=== PATIENT | female | born 1945 | race Two or more races ===

== ENCOUNTER 2025-07-21 11:52 | Inpatient (IN) | payer OTHER ==
[~2025-07-21] VITALS: Ht 160 cm; Wt 59.0 kg
[2025-07-21] MEDS ORDERED: XANAX0.25 MG (13:38)
[2025-07-21] MEDS ORDERED: LEXAPRO5 MG (13:38)
--- NOTE | 2025-07-21 13:38 | NUR ---
PACIENTE FEMENINA ALERTA Y ORIENTADA X3 REFIERE TENER DIARREA HACE 3 VALDEZ. REFIERE TENER COLOSTOMIA. SE MIDEN SIGNOS VITALES Y SE UBICA
[2025-07-21] MEDS ORDERED: ONDANSETRON HCL 2 MG/ML VIAL IV ONE (16:00)
[2025-07-21] MEDS ORDERED: FAMOTIDINE/PF 20 MG/2 ML VIAL IV ONE (16:00)
[2025-07-21] MEDS ORDERED: 0.9 % SODIUM CHLORIDE 1,000 ML IV ONE (16:00)
[2025-07-21] MEDS ORDERED: LOPERAMIDE HCL 2 MG CAPSULE PO ONE ×2 (16:00→16:06)
[2025-07-21] MEDS ORDERED: KETOROLAC TROMETHAMINE 30 MG VIAL IU ONE (16:00)
[2025-07-21] MEDS ORDERED: KETOROLAC TROMETHAMINE 30 MG VIAL ONE (16:06)
[2025-07-21] MEDS ORDERED: FAMOTIDINE/PF 20 MG/2 ML VIAL ONE (16:06)
[2025-07-21] MEDS ORDERED: ONDANSETRON HCL 2 MG/ML VIAL ONE (16:06)
--- NOTE | 2025-07-21 16:50 | NUR ---
PACIENTE EVALUADA POR MD QUIEN ORDENA TRATAMIENTO MEDICO, SE LE ORIENTA A PACIENTE SOBRE EL MISMO Y REFIERE ENTENDER, SE LE COLECTAN MUESTAS, SE CANLAIZA Y SE LE ADMINISTRAN MEDICAMENTOS MORIAH ORDEN. PACIENTE TOLERA Y SE MANTIENE BAJO OBSERVACION POR CAMBIOS.
[2025-07-21 17:01] LABS: BASO % 0.3 % (0.1-1.2); EOS # 0.02 (0.04-0.54); EOS % 0.2 % (0.7-7.0); LYMPH # 3.35 (1.18-3.74); LYMPH % 31.2 % (19.3-53.1); MEAN PLATELET VOLUME 11.80 fl (9.4-12.4); MONO # 0.81 (0.24-0.82); MONO % 7.5 % (4.7-12.5); NEUT # 6.52 (1.56-6.13); NEUT % 60.6 % (34.0-71.1); RED CELL DISTRIBUTION WIDTH 13.2 % (11.6-14.4)
[2025-07-21 17:44] LABS: ALT/SGPT 25.0 U/L (12-78); AST/SGOT 21.0 U/L (15-37); BILIRUBIN TOTAL 1.16 mg/dL (0.3-1.2); BUN CREA RATIO 24.0 (7.0-25.0); CREATININE SERUM 0.54 mg/dL (0.55-1.02); GFR 109.18; GLOBULINA 4.5 G/DL (2.4-3.5); GLUCOSE FASTING 108.0 mg/dL (65-100); OSMOLALITY SERUM 278.0 MOSM/KG (275-295)
[2025-07-21] MEDS ORDERED: CIPROFLOXACIN IN 5 % DEXTROSE 200 ML IV SCH (23:10)
[2025-07-21] MEDS ORDERED: FAMOTIDINE/PF 20 MG in 0.9 % SODIUM CHLORIDE 8 ML IV PUSH SCH (23:10)
[2025-07-21] MEDS ORDERED: 0.9 % SODIUM CHLORIDE 1,000 ML IV SCH (23:15)
[2025-07-21] MEDS ORDERED: ONDANSETRON HCL 4 MG in 0.9 % SODIUM CHLORIDE 50 ML IV PRN (23:15)
[2025-07-21] MEDS ORDERED: ACETAMINOPHEN 500 MG GEL..CAP PO PRN (23:15)
[2025-07-22] MEDS ORDERED: METRONIDAZOLE/SODIUM CHLORIDE 500 MG/100 ML PIGGYBACK IV ONE (02:30)
[2025-07-22] MEDS ORDERED: CIPROFLOXACIN IN 5 % DEXTROSE 400 MG/200 ML PIGGYBAG IV ONE (02:30)
[2025-07-22] MEDS ORDERED: FAMOTIDINE/PF 20 MG/2 ML VIAL ONE (02:30)
[2025-07-22 03:00] VITALS: BP 130/68; O2SAT 99
[2025-07-22] MEDS ORDERED: LEVOTHYROXINE SODIUM 25 MCG TABLET PO SCH (06:00)
[2025-07-22 06:38] VITALS: BP 120/63; O2SAT 100
[2025-07-22] MEDS ORDERED: ENOXAPARIN SODIUM 40 MG/0.4 ML SYRINGE SUBCUTANEO SCH (09:00)
[2025-07-22] MEDS ORDERED: PATIENTS OWN MEDICATION (MEDICAMENTO EN PISO) PO SCH (09:00)
[2025-07-22 10:44] VITALS: BP 122/66; O2SAT 98
[2025-07-22 17:58] LABS: URINE APPEARANCE Clear; URINE BILIRRUBIN Negative (NEGATIVE); URINE BLOOD Negative; URINE COLOR Yellow; URINE GLUCOSE Negative (NEGATIVE); URINE KETONE Trace (NEGATIVE); URINE LEUKOCYTE Small; URINE NITRATE Negative; URINE PROTEIN Negative (NEGATIVE); URINE UROBILINOGEN 0.2 E.U./dl
[2025-07-22 18:01] LABS: URINE BACTERIA 112.0 uL (0.0-1933); URINE EPITHELIAL CELLS 24.5 uL (0.0-38.8); URINE WBC 110.8 uL (0.0-23.2)
[2025-07-22 18:03] LABS: URINE CAST 0.28 uL (0.0-1.40); URINE RBC 1.8 uL (0.0-20.8)
[2025-07-22 19:14] VITALS: BP 124/69
[2025-07-23 01:57] VITALS: BP 102/60; O2SAT 98
[2025-07-23 08:28] LABS: BASO % 0.6 % (0.1-1.2); EOS # 0.10 (0.04-0.54); EOS % 1.5 % (0.7-7.0); LYMPH # 2.19 (1.18-3.74); LYMPH % 32.3 % (19.3-53.1); MEAN PLATELET VOLUME 12.10 fl (9.4-12.4); MONO # 0.59 (0.24-0.82); MONO % 8.7 % (4.7-12.5); NEUT # 3.84 (1.56-6.13); NEUT % 56.8 % (34.0-71.1); RED CELL DISTRIBUTION WIDTH 13.3 % (11.6-14.4)
[2025-07-23 09:04] LABS: ALT/SGPT 19.0 U/L (12-78); AST/SGOT 17.0 U/L (15-37); BILIRUBIN TOTAL 0.78 mg/dL (0.3-1.2); BUN CREA RATIO 14.0 (7.0-25.0); CREATININE SERUM 0.51 mg/dL (0.55-1.02); GFR 116.63; GLOBULINA 2.8 G/DL (2.4-3.5); GLUCOSE FASTING 95.0 mg/dL (65-100); OSMOLALITY SERUM 286.0 MOSM/KG (275-295)
[2025-07-23 09:21] VITALS: BP 113/56; O2SAT 99
== END 2025-07-23 17:11 | disposition home or self-care (01) | DRG 389 ==
LOC: ER 11:53 → SEC-K 23:12 → MEDJ 23:12 → SEC-K 07-22 02:56 → SURH 07-22 04:21 → MEDJ 07-22 04:38
PROVIDERS: General Practice; Internal Medicine Infectious Disease; ADMIT Internal Medicine; ATTEND Internal Medicine
PROC: BW21ZZZ Computerized Tomography (CT Scan) of Abdomen and Pelvis (ICD-10-PCS; principal; 2025-07-21)
DX: K56.600 Partial intestinal obstruction, unspecified as to cause (principal); R65.10 Systemic inflammatory response syndrome (SIRS) of non-infectious origin without acute organ dysfunction; K52.9 Noninfective gastroenteritis and colitis, unspecified; E03.9 Hypothyroidism, unspecified; Z93.3 Colostomy status